=== PATIENT | female | born 1980 | race Caucasian/White ===

== ENCOUNTER → 2018-01-04 16:15 | Outpatient (CLI) | payer MEDICAID ==
[2014-01-28 06:22] VITALS: BMI 39.4
[~2018-01-04 16:15] MED LIST: AFRIN15 ML NASAL; DEXILANT60 MG PO; LEXAPRO10 MG PO
== END | disposition home or self-care (01) ==
LOC: D.MRI 16:15
DX: M54.16 Radiculopathy, lumbar region (principal)

== ENCOUNTER 2018-12-15 17:23 | Emergency (ER) | payer MEDICAID ==
[~2018-12-15] VITALS: Ht 182.9 cm; Wt 125.0 kg
[2018-12-15 17:35] VITALS: Ht 182.9 cm; Wt 125.0 kg
[2018-12-15 17:58] LABS: BASOPHILS 0.2 % (0-2); EOSINOPHILS 0 % (0-7); HEMATOCRIT 38.1 % (36.0-48.0); HEMOGLOBIN 13.2 g/dL (12-16); IMMATURE GRANULOCYTES 0.5 % (0-5); LYMPHOCYTES 3.9 % (15-50); MCH 33.5 pg (26.0-34.0); MCHC 34.6 g/dL (31.0-37.0); MCV 96.7 fL (80.0-100.0); MEAN PLATELET VOLUME 10.3 fL (7.4-10.4); NEUTROPHILS 91.4 % (40-80); RBC 3.94 10x6/uL (4.00-5.40); RDW 12.3 % (11.5-14.5); WBC 12.4 10x3/uL (4.8-10.8)
[2018-12-15 17:59] LABS: PLATELET COUNT 181 10x3/uL (130-400)
[2018-12-15 18:13] LABS: ALBUMIN 3.7 g/dL (3.4-5.0); ANION GAP 13.2 mmol/L (8-16); BILIRUBIN - TOTAL 0.69 mg/dL (0.2-1.3); CARBON DIOXIDE 24.6 mmol/L (21.0-32.0); PROTEIN - SERUM 7.7 g/dL (6.4-8.2)
[2018-12-15 18:14] LABS: POTASSIUM - SERUM 2.8 mmol/L (3.5-5.1)
[2018-12-15] MEDS ORDERED: CLEOCIN HCL300 MG PO (19:54)
[2018-12-15] MEDS ORDERED: ULTRAM50 MG PO (19:55)
[2018-12-15 20:20] VITALS: BP 118/81
== END 2018-12-15 20:20 | disposition home or self-care (01) ==
LOC: D.ER 17:23
PROVIDERS: Family Medicine
DX: L03.116 Cellulitis of left lower limb (principal)